=== PATIENT | female | born 1960 | race Caucasian/White ===

== ENCOUNTER → 2017-05-29 | Outpatient (CLI) | payer OTHER ==
[~2017-05-29] MED LIST: ALLERGY SHOT INJ; MULTIPLE VITAMI1 CAP PO; PRISTIQ 50 MG T50 MG PO; STRESS B COMPLE1 TAB PO; SUPER EPA1 SGL PO; VITAMIN C500 MG PO; [UNRECOGNIZED DRUG - CODE] PO
== END ==
LOC: COL.RAD 14:06
DX: R31.9 Hematuria, unspecified (principal); I70.0 Atherosclerosis of aorta

== ENCOUNTER → 2018-07-08 | Outpatient (CLI) | payer OTHER | LOC: MC.RAD 15:10 | DX: Z12.31 Encounter for screening mammogram for malignant neoplasm of breast (principal) ==

== ENCOUNTER → 2021-02-24 | Outpatient (CLI) | payer OTHER | LOC: MC.RAD 09:15 | DX: Z12.31 Encounter for screening mammogram for malignant neoplasm of breast (principal) ==

== ENCOUNTER → 2021-09-28 | Outpatient (CLI) | payer OTHER | LOC: ZCOL.LAB 16:03 | DX: R05.9 Cough, unspecified (principal); R09.81 Nasal congestion; Z20.822 Contact with and (suspected) exposure to COVID-19 ==

== ENCOUNTER → 2022-11-22 | Outpatient (CLI) | payer BC | LOC: MC.RAD 08:38 | DX: Z12.31 Encounter for screening mammogram for malignant neoplasm of breast (principal) ==

== ENCOUNTER 2023-10-04 06:41 | Day surgery (SDC) | payer BC ==
[~2023-10-04] VITALS: Ht 160 cm; Wt 53.3 kg
[2023-10-04] MEDS ORDERED: PREMPRO 0.3 MG-1 TAB PO (07:17)
[2023-10-04] MEDS ORDERED: MAGNESIUM GLYC100 MG PO (07:17)
--- NOTE | 2023-10-04 07:28 | NUR ---
Pt arrived with , states bowel prep worked well, VSS, reviewed history/meds/allergies, signed consents and has no questions; to place IV and await procedure.
[2023-10-04 07:29] VITALS: BP 107/71; PULSE 74; TEMP 98.2
--- NOTE | 2023-10-04 08:33 | NUR ---
The patient arrived back to [facility] from the endoscopy suite at this time. The patient ambulated from the cart to the recliner in her room with the stand by assistance of two nurses and appeared to tolerate the activity well. Post procedure vital signs were started at this time. The patient agrees to try some grape juice and muffin at this time. Call light is within reach. Warm blanket provided. The patient denies any further needs at this time.
[2023-10-04 08:35] VITALS: BP 104/53; PULSE 61; TEMP 97.4
[2023-10-04 08:45] VITALS: BP 121/70; PULSE 73
--- NOTE | 2023-10-04 08:45 | NUR ---
Dr. Jacob has been in to speak with the patient regarding the findings of the procedure. Discharge instructions were reviewed with the patient at this time. She verbalized understanding and has no questions for the nurse at this time. The patient's IV to her right hand was removed and a pressure dressing was applied to the site. The nurse instructed the patient to get dressed and notify the staff when she is ready to be escorted out. The patien's was called and he is pulling the car up to the patient entrance.
--- NOTE | 2023-10-04 08:56 | NUR ---
The patient was esorted out via wheelchair to a private vehicle by YOUNG Sims. The patient's belonings and discharge paperwork were sent with her. The patient's is present to drive her home.
== END 2023-10-04 08:56 | disposition home or self-care (01) ==
LOC: SDCO 06:41
DX: Z12.11 Encounter for screening for malignant neoplasm of colon (principal)
CPT/HCPCS: J2704; J7120